=== PATIENT | male | born 1960 | race Caucasian/White ===

== ENCOUNTER 2020-11-08 12:26 | Outpatient (CLI) | payer OTHER, SELFPAY ==
--- NOTE | ~2020-11-08 | XR_ITS ---
EXAMINATION: XR ankle LT min 3V DATE: 11/08/2020 12:54 INDICATION: Left ankle and heel pain. TECHNIQUE: Anteroposterior, oblique, mortise, and lateral views of the left ankle were obtained. COMPARISON: None. FINDINGS: Bone alignment is normal. No fracture. Heterotopic ossification between the medial malleolus and the medial aspect of the talus consistent with sequela of chronic deltoid ligament sprain. Polyarticular osteoarthritis at the left foot, moderate severity at the calcaneocuboid joint and mild at multiple a dditional joints in the mid and hindfoot. The left ankle joint space appears relatively preserved. Sm all to moderate-sized Achilles and plantar calcaneal spurs. Additional enthesophytes versus heterotop ic ossification dorsal to one of the tarsal metatarsal joints. Soft tissue swelling about the lateral malleolus. No ankle joint effusion. IMPRESSION: 1. Polyarticular osteoarthritis throughout the left foot, moderate at the calcaneocuboid joint and ot herwise mild. 2. Heterotopic ossification along the deltoid ligament consistent with sequela of chronic sprain. 3. Enthesopathy with small to moderate-sized spurs at the calcaneal attachments of the Achilles tendo n and plantar aponeurosis. Reviewed, dictated and finalized at location A. IMPRESSION: 1. Polyarticular osteoarthritis throughout the left foot, moderate at the calca neocuboid joint and otherwise mild. 2. Heterotopic ossification along the deltoid ligament consistent with sequela of chronic sprain. 3. Enthesopathy with small to moderate-sized spurs at the calcaneal attachments of the Achilles tendon and plantar aponeurosis.
== END 2020-11-08 12:27 | disposition home or self-care (01) ==
LOC: ANHBWCIMG 12:30
PROVIDERS: PCP Family Medicine; Visit Provider Physician Assistant Medical
DX: M19.072 Primary osteoarthritis, left ankle and foot (principal)
CPT/HCPCS: 73610